=== PATIENT | male | born 1975 | race Caucasian/White ===

== ENCOUNTER → 2016-10-05 | Outpatient (CLI) | payer OTHER ==
--- NOTE | 2016-10-05 09:30 | RADRPT ---
PROCEDURE: XR pelvis/left hip. CLINICAL INDICATION: Hip pain TECHNIQUE: AP pelvis/AP and lateral left hip view performed COMPARISON: No prior studies are available for comparison. FINDINGS: There is moderate to severe left hip osteoarthrosis and mild to moderate right hip osteoarthrosis. T his is associated with joint space narrowing, subchondral sclerosis and osteophytosis. There is nor mal mineralization. No fractures or osseous lesions are identified. The soft tissues are unremarka ble. IMPRESSION: Moderate to severe left hip osteoarthrosis. Mild to moderate right hip osteoarthrosis RPTAT: [facility] .Harjit Palma MD, Date Time Electronically viewed and signed by .Harjit Palma MD, on 10/05/2016 09:29 .B/
--- NOTE | 2016-10-05 09:30 | RADRPT ---
PROCEDURE: XR left knee. CLINICAL INDICATION: Knee pain TECHNIQUE: AP weightbearing, PA weightbearing, lateral weightbearing and sunrise views are availab le for review. COMPARISON: None available FINDINGS: The osseous structures are normal in mineralization, architecture and alignment. No fractures are i dentified. No osseous lesions are identified. The joints are unremarkable. The soft tissues are u nremarkable. IMPRESSION: Unremarkable examination RPTAT: [facility] .Harjit Palma MD, MD Date Time Electronically viewed and signed by .Harjit Palma MD, MD on 10/05/2016 09:30 .B/
== END | disposition home or self-care (01) ==
LOC: HKI 08:55
PROVIDERS: ATTEND Orthopaedic Surgery
DX: M16.0 Bilateral primary osteoarthritis of hip (principal); M25.552 Pain in left hip; M25.562 Pain in left knee; M22.42 Chondromalacia patellae, left knee
CPT/HCPCS: 73502; 73564; G0463